=== PATIENT | female | born 2005 | race Caucasian/White ===

== ENCOUNTER 2025-05-23 12:54 | Outpatient (CLI) | payer BC, SELFPAY ==
--- NOTE | ~2025-05-23 | US_ITS ---
EXAMINATION: US pelvic complete w TV INDICATION: Amenorrhea Comparison:No prior studies for comparison. TECHNIQUE: Multiple transabdominal and endovaginal sonographic images of the pelvis performed. FINDINGS: The uterus measures 9.2 x 6.1 x 4 cm. There is fluid in the cervix. The endometrial complex measures 14 mm. Endometrium is thickened and heterogeneous with endometrial vascularity The right ovary measures 4.3 x 4.4 x 3.5 cm and the left ovary measures 3.2 x 2.3 x 2.4 cm. There are small follicles in each ovary. There is a right ovarian cyst measuring 4.1 cm. Normal doppler signal in both ovaries. There is trace free fluid in the pelvis. There are no abnormal masses seen on either side. IMPRESSION: 1. Right ovarian cyst measuring 4.1 cm. 2: Thickened heterogeneous endometrium with increased vascularity and trace fluid in the cervix. Recommend obstetrical consultation. 3: Right ovarian cyst measuring 4.1 cm. Reviewed, dictated and finalized at location I. [employer] IMPRESSION: 1. Right ovarian cyst measuring 4.1 cm. 2: Thickened heterogeneous endometrium with increased vascularity and trace flu id in the cervix. Recommend obstetrical consultation. 3: Right ovarian cyst measuring 4.1 cm.
== END 2025-05-23 12:55 | disposition home or self-care (01) ==
PROVIDERS: PCP Obstetrics & Gynecology Gynecology; Visit Provider Obstetrics & Gynecology Gynecology
DX: N91.2 Amenorrhea, unspecified (principal)
CPT/HCPCS: 76830; 76856